=== PATIENT | female | born 1980 | race Caucasian/White ===

== ENCOUNTER 2016-07-21 00:39 | Emergency (ER) | payer BC ==
[~2016-07-21] VITALS: Ht 177.8 cm; Wt 72.6 kg
[~2016-07-21 00:39] MED LIST: ACYC30OI TP; ALPR0.25 PO; OMEG10006 PO; SERT50TA PO
[2016-07-21] MEDS ORDERED: BENZTROPINE MESYLATE 2 MG/2 ML AMPUL IM ONE (01:00)
[2016-07-21] MEDS ORDERED: DIAZEPAM 2 MG TABLET PO ONE (01:00)
[2016-07-21] MEDS ORDERED: BENZTROPINE MESYLATE 2 MG/2 ML AMPUL ONE (01:15)
[2016-07-21] MEDS ORDERED: DIAZEPAM 2 MG TABLET ONE (01:16)
--- NOTE | 2016-07-21 01:25 | NUR ---
Patient discharged to home in stable conditon. Written and verbal after care instructions given. Patient verbalizes understanding of instructions.
[2016-07-21 01:28] VITALS: BP 109/78
== END 2016-07-21 01:25 | disposition home or self-care (01) ==
LOC: ER 00:41
DX: G25.81 Restless legs syndrome (principal); F41.9 Anxiety disorder, unspecified; G47.00 Insomnia, unspecified; F10.20 Alcohol dependence, uncomplicated; F17.200 Nicotine dependence, unspecified, uncomplicated; Z85.820 Personal history of malignant melanoma of skin
CPT/HCPCS: A4663; J0515

== ENCOUNTER 2016-12-21 07:21 | Emergency (ER) | payer BC ==
[~2016-12-21] VITALS: Ht 177.8 cm; Wt 74.8 kg
--- NOTE | 2016-12-21 07:54 | NUR ---
pt is in bed #2b. dr Wheeler evaluated the pt.
--- NOTE | 2016-12-21 10:04 | NUR ---
pt was d/c to home. d/c instructions given to the pt.
[2016-12-21 10:05] VITALS: BP 133/71
== END 2016-12-21 10:06 | disposition home or self-care (01) ==
LOC: ER 07:22
DX: S99.921A Unspecified injury of right foot, initial encounter (principal); F41.9 Anxiety disorder, unspecified; W22.01XA Walked into wall, initial encounter; Y93.89 Activity, other specified; Y99.8 Other external cause status; Y92.89 Other specified places as the place of occurrence of the external cause
CPT/HCPCS: 99282; A4663

== ENCOUNTER 2017-03-12 00:18 | Emergency (ER) | payer BC ==
[~2017-03-12] VITALS: Ht 177.8 cm; Wt 80.3 kg
[~2017-03-12 00:18] MED LIST changes: -ACYC30OI TP
--- NOTE | 2017-03-12 01:10 | NUR ---
PT C/O ABD PAIN; ;ELEVATED TEMP
--- NOTE | 2017-03-12 01:25 | NUR ---
DR CORTES TO EXAM
[2017-03-12] MEDS ORDERED: ACETAMINOPHEN ES 500 MG TABLET PO ONE (01:30)
--- NOTE | 2017-03-12 01:50 | NUR ---
TYLENOL 1000MG PO GIVEN
--- NOTE | 2017-03-12 01:59 | NUR ---
PT URINE SPECIMEN TO LAB
[2017-03-12] MEDS ORDERED: ACETAMINOPHEN ES 500 MG TABLET ONE (02:02)
[2017-03-12 02:03] LABS: *BILIRUBIN,URIN NEGATIVE (NEGATIVE); *BLOOD, URINE NEGATIVE (NEGATIVE); *CLARITY,URINE CLEAR (CLEAR); *COLOR,URINE LIGHT YELLOW (YELLOW); *KETONES,URINE NEGATIVE (NEGATIVE); *PROTEIN,URINE NEGATIVE (NEGATIVE); *UROBILINOGEN,URINE 0.2 E.U./dl (NORMAL); LEUKOCYTE ESTERASE ,URINE NEGATIVE (NEGATIVE); NITRITE, URINE NEGATIVE (NEGATIVE); UGLUCOSE NEGATIVE (NEGATIVE)
[2017-03-12 02:15] LABS: BACTERIA,URINE NONE SEEN /HPF (NONE SEEN); RBC,URINE NONE SEEN /HPF (0-3); SQUAMOUS EPITHELIAL CELL,UR FEW /HPF (NONE SEEN); WBC,URINE 0-3 /HPF (0-3)
--- NOTE | 2017-03-12 02:25 | NUR ---
PT FEELING BETTER AFTER TYLENOL ; TEMP 98.[address] CORTES TO [facility]ANDAR
[2017-03-12 02:29] VITALS: BP 112/72
--- NOTE | 2017-03-12 02:34 | NUR ---
Patient discharged to home in stable conditon. Written and verbal after care instructions given. Patient verbalizes understanding of instructions.
== END 2017-03-12 02:34 | disposition home or self-care (01) ==
LOC: ER 00:23
DX: O26.891 Other specified pregnancy related conditions, first trimester (principal); Z3A.10 10 weeks gestation of pregnancy; Z85.820 Personal history of malignant melanoma of skin; Z90.49 Acquired absence of other specified parts of digestive tract
CPT/HCPCS: 81001; 99283; A4663

== ENCOUNTER 2018-03-30 12:49 | Emergency (ER) | payer BC ==
[~2018-03-30] VITALS: Ht 172.7 cm; Wt 72.6 kg
[2018-03-30] MEDS: LORAZEPAM 0.5 MG TABLET PO ONE (13:13)
[2018-03-30] MEDS ORDERED: LORAZEPAM 0.5 MG TABLET ONE (13:13)
[2018-03-30 13:31] LABS: BASOPHILS % (AUTO) 0.6 % (0.0-2.0); EOSINOPHILS # (AUTO) 0.1 K/uL (0.0-0.7); EOSINOPHILS % (AUTO) 1.5 % (0.0-7.0); HEMATOCRIT 39.2 % (31.2-41.9); HEMOGLOBIN 13.4 g/dL (10.9-14.3); MEAN CORPUSCULAR HEMOGLOBIN 31.2 uug (24.7-32.8); MEAN CORPUSCULAR HGB CONC 34 g/dL (32.3-35.6); MEAN CORPUSCULAR VOLUME 91.6 fL (75.5-95.3); MONOCYTES # (AUTO) 0.4 K/uL (2.0-10.0); MONOCYTES % (AUTO) 4.6 % (0.0-11.0); NEUTROPHILS # (AUTO) 5.1 K/uL (1.8-8.9); NEUTROPHILS % (AUTO) 67.3 % (38.5-71.5); PLATELET COUNT (AUTO) 267 K/uL (179-408); RED BLOOD CELL COUNT(AUTO) 4.28 MIL/uL (3.63-4.92); WHITE BLOOD COUNT (AUTO) 7.6 K/uL (3.8-11.8)
[2018-03-30 13:39] LABS: CREATININE 0.7 mg/dL (0.6-1.3)
[2018-03-30 13:45] LABS: BILIRUBIN,DIRECT 0.1 mg/dL (0.0-0.2); BILIRUBIN,TOTAL 0.3 mg/dL (0.2-1.0); TOTAL PROTEIN, SERUM 7.7 g/dL (6.4-8.2)
--- NOTE | 2018-03-30 14:12 | NUR ---
Ativan prescription was given by . Copies of all tests results were given to patient per patient's request. Patient discharged to home in stable conditon. Written and verbal after care instructions given. Patient verbalizes understanding of instructions.
== END 2018-03-30 14:13 | disposition home or self-care (01) ==
LOC: ER 12:49
DX: R07.9 Chest pain, unspecified (principal); F41.9 Anxiety disorder, unspecified; Z90.49 Acquired absence of other specified parts of digestive tract; Z79.899 Other long term (current) drug therapy
CPT/HCPCS: 36415; 70030-TC; 71045; 85025; 93005; A4663

== ENCOUNTER 2018-11-25 14:57 | Emergency (ER) | payer BC ==
[~2018-11-25] VITALS: Ht 177.8 cm; Wt 77.1 kg
--- NOTE | 2018-11-25 15:11 | NUR ---
CJ ALICEA AT BEDSIDE FOR MSE.
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
--- NOTE | 2018-11-25 15:34 | NUR ---
PT TAKEN TO RADIOLOGY FOR CT SCAN.
--- NOTE | 2018-11-25 15:50 | NUR ---
PT BACK IN ER FROM RADIOLOGY.
--- NOTE | 2018-11-25 16:03 | NUR ---
CJ ALICEA AT BEDSIDE FOR MSE.
--- NOTE | 2018-11-25 16:15 | NUR ---
Patient discharged to home in stable conditon. Written and verbal after care instructions given. Patient verbalizes understanding of instructions. ALL BELONGINGS W/ PT. PT SELF-AMBULATED W/O DIFFICULTY.
[2018-11-25 16:17] VITALS: BP 116/66
== END 2018-11-25 16:23 | disposition home or self-care (01) ==
LOC: ER 14:57
DX: S06.0X0A Concussion without loss of consciousness, initial encounter (principal); F41.9 Anxiety disorder, unspecified; Z90.49 Acquired absence of other specified parts of digestive tract; Z79.899 Other long term (current) drug therapy; W51.XXXA Accidental striking against or bumped into by another person, initial encounter; Y93.89 Activity, other specified; Y92.89 Other specified places as the place of occurrence of the external cause; Y99.8 Other external cause status
CPT/HCPCS: 70450; A4663

== ENCOUNTER 2019-01-07 20:01 | Emergency (ER) | payer BC ==
[~2019-01-07] VITALS: Ht 177.8 cm; Wt 74.8 kg
[2019-01-07 20:56] LABS: BASOPHILS # (AUTO) 0.1 K/uL (0.0-8.0); BASOPHILS % (AUTO) 0.8 % (0.0-2.0); EOSINOPHILS # (AUTO) 0.1 K/uL (0.0-0.7); EOSINOPHILS % (AUTO) 1.2 % (0.0-7.0); HEMATOCRIT 39.1 % (31.2-41.9); HEMOGLOBIN 13.2 g/dL (10.9-14.3); LYMPHOCYTES # (AUTO) 2.1 K/uL (20.0-40.0); LYMPHOCYTES % (AUTO) 23.8 % (20.5-51.5); MEAN CORPUSCULAR HEMOGLOBIN 30.8 uug (24.7-32.8); MEAN CORPUSCULAR HGB CONC 34 g/dL (32.3-35.6); MEAN CORPUSCULAR VOLUME 91.4 fL (75.5-95.3); MONOCYTES # (AUTO) 0.4 K/uL (2.0-10.0); MONOCYTES % (AUTO) 4.9 % (0.0-11.0); NEUTROPHILS # (AUTO) 6.1 K/uL (1.8-8.9); NEUTROPHILS % (AUTO) 69.3 % (38.5-71.5); PLATELET COUNT (AUTO) 257 K/uL (179-408); RED BLOOD CELL COUNT(AUTO) 4.28 MIL/uL (3.63-4.92); WHITE BLOOD COUNT (AUTO) 8.9 K/uL (3.8-11.8)
[2019-01-07 21:06] LABS: CREATININE 0.7 mg/dL (0.6-1.3)
[2019-01-07 21:07] LABS: LIPASE 121 U/L (73-393)
--- NOTE | 2019-01-07 21:14 | NUR ---
Pt refusing s/l notify edward Simpson
--- NOTE | 2019-01-07 21:19 | NUR ---
Lying on gurney ekg and labs done. Place on heart leads sr in 70's refused s/l
[2019-01-07 21:21] LABS: BILIRUBIN,DIRECT 0.1 mg/dL (0.0-0.2); BILIRUBIN,TOTAL 0.3 mg/dL (0.2-1.0); TOTAL PROTEIN, SERUM 7.8 g/dL (6.4-8.2)
[2019-01-07 22:26] VITALS: BP 120/74
== END 2019-01-07 22:29 | disposition home or self-care (01) ==
LOC: ER 20:04
DX: R07.89 Other chest pain (principal); F41.9 Anxiety disorder, unspecified; R94.31 Abnormal electrocardiogram [ECG] [EKG]; F17.200 Nicotine dependence, unspecified, uncomplicated; Z90.49 Acquired absence of other specified parts of digestive tract; Z79.899 Other long term (current) drug therapy
CPT/HCPCS: 36415; 70030-TC; 71045; 83690; 85025; 93005; A4663

== ENCOUNTER 2019-02-13 19:56 | Emergency (ER) | payer BC ==
[~2019-02-13] VITALS: Ht 177.8 cm; Wt 74.8 kg
--- NOTE | 2019-02-13 20:13 | NUR ---
DR. CEE AT BEDSIDE FOR MSE.
[2019-02-13 20:30] LABS: BASOPHILS # (AUTO) 0.1 K/uL (0.0-8.0); BASOPHILS % (AUTO) 0.7 % (0.0-2.0); EOSINOPHILS # (AUTO) 0.1 K/uL (0.0-0.7); HEMATOCRIT 39.8 % (31.2-41.9); HEMOGLOBIN 13.3 g/dL (10.9-14.3); LYMPHOCYTES # (AUTO) 2.4 K/uL (20.0-40.0); LYMPHOCYTES % (AUTO) 29.7 % (20.5-51.5); MEAN CORPUSCULAR HEMOGLOBIN 30.8 uug (24.7-32.8); MEAN CORPUSCULAR HGB CONC 33 g/dL (32.3-35.6); MEAN CORPUSCULAR VOLUME 92.2 fL (75.5-95.3); MONOCYTES # (AUTO) 0.4 K/uL (2.0-10.0); MONOCYTES % (AUTO) 5.1 % (0.0-11.0); NEUTROPHILS # (AUTO) 5.2 K/uL (1.8-8.9); NEUTROPHILS % (AUTO) 63.5 % (38.5-71.5); PLATELET COUNT (AUTO) 274 K/uL (179-408); RED BLOOD CELL COUNT(AUTO) 4.32 MIL/uL (3.63-4.92); WHITE BLOOD COUNT (AUTO) 8.2 K/uL (3.8-11.8)
[2019-02-13] MEDS ORDERED: IV NORMAL SALINE 1000 ML BAG IV ONE (20:30)
[2019-02-13] MEDS ORDERED: ONDANSETRON 4 MG/2 ML VIAL IV ONE (20:30)
[2019-02-13] MEDS ORDERED: KETOROLAC TROMETHAMINE 30 MG INJ IVP ONE (20:30)
[2019-02-13] MEDS ORDERED: ONDANSETRON 4 MG/2 ML VIAL ONE (20:36)
[2019-02-13] MEDS ORDERED: KETOROLAC TROMETHAMINE 30 MG INJ ONE (20:36)
[2019-02-13 20:38] LABS: CREATININE 0.7 mg/dL (0.6-1.3); POTASSIUM 3.8 mmol/L (3.5-5.1)
[2019-02-13 20:44] LABS: BILIRUBIN,DIRECT 0.1 mg/dL (0.0-0.2); BILIRUBIN,TOTAL 0.2 mg/dL (0.2-1.0); TOTAL PROTEIN, SERUM 7.4 g/dL (6.4-8.2)
--- NOTE | 2019-02-13 22:43 | NUR ---
Patient discharged to home in stable conditon. Written and verbal after care instructions given. Patient verbalizes understanding of instructions. PATIENT LEFT WITH STABLE GAIT.
[2019-02-13 22:44] VITALS: BP 105/75
[2019-02-13] MEDS ORDERED: MAG HYDROX/AL HYDROX/SIMETH 30 ML LIQUID UDC PO ONE (22:45)
[2019-02-13] MEDS ORDERED: LIDOCAINE VISCUS 2% 15 ML UDC ONE (22:45)
[2019-02-13] MEDS ORDERED: MAG HYDROX/AL HYDROX/SIMETH 30 ML LIQUID UDC ONE (22:45)
[2019-02-13] MEDS ORDERED: LIDOCAINE VISCUS 2% 15 ML UDC MM ONE (22:45)
== END 2019-02-13 22:44 | disposition home or self-care (01) ==
LOC: ER 19:56
DX: J06.9 Acute upper respiratory infection, unspecified (principal); R10.13 Epigastric pain; R11.2 Nausea with vomiting, unspecified; F41.9 Anxiety disorder, unspecified; F32.9 Major depressive disorder, single episode, unspecified; F17.290 Nicotine dependence, other tobacco product, uncomplicated; Z90.49 Acquired absence of other specified parts of digestive tract; Z79.899 Other long term (current) drug therapy
CPT/HCPCS: 36415; 76705; 80048; 80076; 83690; 84702; 85025; 93005; 96361; 96374; 96375; 99284; J1885; J2405; A4663; J7030

== ENCOUNTER 2021-10-02 12:03 | Emergency (ER) | payer BC, OTHER ==
[~2021-10-02] VITALS: Ht 177.8 cm; Wt 62.6 kg
--- NOTE | 2021-10-02 12:11 | NUR ---
Provider face to face notification by heating and cooling systems engineer Sepi: Dr Wheeler was notified of patient's request for IV fluids, Zofran and GI cocktail.
[2021-10-02] MEDS ORDERED: ONDANSETRON 4 MG/2 ML VIAL ONE ×2 (12:19→13:06)
--- NOTE | 2021-10-02 12:31 | NUR ---
[email or web address], medical screening exam in progress.
[2021-10-02] MEDS ORDERED: IV NORMAL SALINE 1000 ML BAG IV ONE ×2 (12:45→14:00)
[2021-10-02] MEDS ORDERED: PANTOPRAZOLE SODIUM 40 MG VIAL IV ONE (12:45)
[2021-10-02] MEDS ORDERED: ONDANSETRON 4 MG/2 ML VIAL IV ONE ×2 (12:45→14:00)
[2021-10-02] MEDS ORDERED: PANTOPRAZOLE SODIUM 40 MG VIAL ONE (12:45)
[2021-10-02] MEDS ORDERED: LOPERAMIDE HCL 2 MG CAPSULE ONE (12:45)
[2021-10-02] MEDS ORDERED: LOPERAMIDE HCL 2 MG CAPSULE PO ONE (12:45)
--- NOTE | 2021-10-02 12:56 | NUR ---
"I missed my Zoloft this morning." per patient's verbalization, notified.
--- NOTE | 2021-10-02 13:07 | NUR ---
Patient is still c/o nausea, no actual vomiting or diarrhea episodes seen since admission to ER. MD notified with orders to give 8mg IV Zofran and another liter of normal saline bolus.
[2021-10-02 13:09] LABS: *URINE HCG, QUAL NEG (NEGATIVE)
--- NOTE | 2021-10-02 13:13 | NUR ---
* 8mg IV Zofran given and 2nd liter of normal saline bolus infusing well.
--- NOTE | 2021-10-02 13:13 | NUR ---
Grace shirley in [facility] - 10/02/21 at 1433 by CIRILO * 8mg IV Zofran given and 2nd liter of normal saline bolus started.
--- NOTE | 2021-10-02 13:18 | NUR ---
Patient is resting comfortably on gurney while using her personal electronic device. 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
[2021-10-02] MEDS ORDERED: LOPE-195 PO (14:18)
--- NOTE | 2021-10-02 14:31 | NUR ---
Patient discharged to home in stable condition. Written and verbal after care instructions given. Patient verbalizes understanding of instructions. Stressed follow up or return to ER for worsening s/s.pt walks in steady gait. pt denies any n/v at this time. pt says feels better.
[2021-10-02 14:33] VITALS: BP 119/71
== END 2021-10-02 14:33 | disposition home or self-care (01) ==
LOC: ER 12:03
DX: R11.2 Nausea with vomiting, unspecified (principal); R19.7 Diarrhea, unspecified; F41.9 Anxiety disorder, unspecified; Z87.891 Personal history of nicotine dependence; F42.9 Obsessive-compulsive disorder, unspecified; Z79.899 Other long term (current) drug therapy; R10.30 Lower abdominal pain, unspecified
CPT/HCPCS: 84703; 96361; 96374; 96375; 96376; 99284; C9113; J2405 ×2; J7040 ×2; A4663

== ENCOUNTER 2021-10-04 10:28 | Emergency (ER) | payer OTHER ==
[~2021-10-04] VITALS: Ht 177.8 cm; Wt 62.6 kg
[~2021-10-04 10:28] MED LIST changes: +LOPE-195 PO
--- NOTE | 2021-10-04 11:10 | NUR ---
MD at bedside, medical screening exam in progress.
[2021-10-04] MEDS ORDERED: IV NORMAL SALINE 1000 ML BAG IV ONE (11:30)
[2021-10-04] MEDS ORDERED: ONDANSETRON 4 MG/2 ML VIAL IV ONE (11:30)
[2021-10-04] MEDS ORDERED: PANTOPRAZOLE SODIUM 40 MG VIAL IV ONE (11:30)
[2021-10-04] MEDS ORDERED: ONDANSETRON 4 MG/2 ML VIAL ONE (11:45)
[2021-10-04] MEDS ORDERED: PANTOPRAZOLE SODIUM 40 MG VIAL ONE (11:45)
[2021-10-04 11:50] LABS: HEMATOCRIT 37.5 % (31.2-41.9); MEAN CORPUSCULAR HEMOGLOBIN 31.8 uug (24.7-32.8); MEAN CORPUSCULAR VOLUME 91.3 fL (75.5-95.3); PLATELET COUNT (AUTO) 280 K/uL (179-408)
[2021-10-04 11:56] LABS: CREATININE 0.7 mg/dL (0.6-1.3); POTASSIUM 3.4 mmol/L (3.5-5.1)
[2021-10-04 12:02] LABS: BILIRUBIN,DIRECT 0.1 mg/dL (0.0-0.2); BILIRUBIN,TOTAL 0.4 mg/dL (0.2-1.0); TOTAL PROTEIN, SERUM 7.6 g/dL (6.4-8.2)
[2021-10-04] MEDS ORDERED: LORAZEPAM 2 MG/1 ML VIAL ONE (12:24)
--- NOTE | 2021-10-04 12:24 | NUR ---
Late entry: Patient received 0.5mg of lorazepam, waste amount was 1.5mg. Documented wrongly as 1mg.
[2021-10-04] MEDS ORDERED: LORAZEPAM 2 MG/1 ML VIAL IV ONE (12:30)
[2021-10-04] MEDS ORDERED: METOCLOPRAMIDE HCL 10 MG/2 ML VIAL IV ONE (13:15)
[2021-10-04] MEDS ORDERED: METOCLOPRAMIDE HCL 10 MG/2 ML VIAL ONE (13:46)
[2021-10-04] MEDS ORDERED: CLON0.5T4 PO (14:07)
--- NOTE | 2021-10-04 14:16 | NUR ---
Patient discharged to home in stable condition. Written and verbal after care instructions given. Patient verbalizes understanding of instructions. Stressed follow up or return to ER for worsening s/s. IV removed aseptically.
[2021-10-04 14:40] VITALS: BP 126/80
== END 2021-10-04 14:41 | disposition home or self-care (01) ==
LOC: ER 10:28
DX: R10.9 Unspecified abdominal pain (principal)
CPT/HCPCS: 96374; 96375; 76705; 96361; 80076; 80048; 83690; 84443; 85025; 36415; J2060; J2765; J2405; C9113; J7040; A4663

== ENCOUNTER 2024-03-25 14:14 | Emergency (ER) | payer OTHER ==
[~2024-03-25] VITALS: Ht 177.8 cm; Wt 62.1 kg
[~2024-03-25 14:14] MED LIST changes: +CLON0.5T4 PO
[2024-03-25] MEDS ORDERED: ONDANSETRON ODT 4 MG TAB.RAPDIS ONE (15:13)
[2024-03-25] MEDS ORDERED: ACETAMINOPHEN/CODEINE 300-30 MG TABLET ONE ×2 (15:14→15:17)
[2024-03-25] MEDS: ACETAMINOPHEN/CODEINE 300-30 MG TABLET PO ONE (15:15)
[2024-03-25] MEDS: ONDANSETRON ODT 4 MG TAB.RAPDIS SL ONE (15:15)
[2024-03-25 15:22] LABS: *BILIRUBIN,URIN NEGATIVE (NEGATIVE); *BLOOD, URINE NEGATIVE (NEGATIVE); *CLARITY,URINE CLEAR (CLEAR); *COLOR,URINE YELLOW (YELLOW); *KETONES,URINE NEGATIVE (NEGATIVE); *PROTEIN,URINE NEGATIVE (NEGATIVE); *UROBILINOGEN,URINE 0.2 E.U./dl (NORMAL); LEUKOCYTE ESTERASE ,URINE NEGATIVE (NEGATIVE); NITRITE, URINE NEGATIVE (NEGATIVE); UGLUCOSE NEGATIVE (NEGATIVE)
[2024-03-25 15:23] VITALS: O2SAT 96
[2024-03-25 15:24] LABS: *URINE HCG, QUAL NEGATIVE (NEGATIVE)
[2024-03-25] MEDS ORDERED: LIDOCAINE 5% PATCH TD ONE (16:59)
[2024-03-25] MEDS: LIDOCAINE 5% PATCH TD ONE (17:00)
[2024-03-25] MEDS ORDERED: LIDO30AD10 TP (17:04)
[2024-03-25] MEDS ORDERED: ACET1TAB23 PO (17:04)
== END 2024-03-25 17:12 | disposition home or self-care (01) ==
LOC: ER 14:14
DX: M25.551 Pain in right hip (principal); F17.200 Nicotine dependence, unspecified, uncomplicated; F41.9 Anxiety disorder, unspecified; F42.9 Obsessive-compulsive disorder, unspecified; Z79.899 Other long term (current) drug therapy; Z90.49 Acquired absence of other specified parts of digestive tract; V43.62XA Car passenger injured in collision with other type car in traffic accident, initial encounter; Y93.89 Activity, other specified; Y92.488 Other paved roadways as the place of occurrence of the external cause; Y99.8 Other external cause status
CPT/HCPCS: 73502; 84703; A4606; A4663; Q0162